=== PATIENT | male | born 1940 | race Caucasian/White ===

== ENCOUNTER 2022-06-20 09:27 | Inpatient (IN) | payer OTHER ==
[2022-06-20 11:06] LABS: BASO % 0.2 % (0-2.0); EOS % 0.3 % (0-4.5); HEMATOCRIT 16.6 % (35.4-49); LYMPH % 6.6 % (8-40); MCH 27.8 pg (25.7-33.7); MCHC 29.8 g/dl (32.0-35.9); MEAN CELL VOLUME 93.4 fl (80-96); MEAN PLT VOLUME 7.6 fl (7.5-11.1); NEUT % 88.9 % (42.8-82.8); PLATELET COUNT 372 10^3/uL (134-434); RBC 1.78 M/mm3 (4.00-5.60); RDW 19.9 % (11.9-15.9); WHITE BLOOD COUNT 28.3 K/mm3 (4.0-10.0)
[2022-06-20 11:22] LABS: INR 1.71 (0.83-1.09); PROTHROMBIN TIME (PATIENT) 19.8 SEC (9.7-13.0)
[2022-06-20] MEDS ORDERED: CEFTRIAXONE 1,000 MG in DEXTROSE 5%-WATER - 50 ML IVPB ONE (11:24)
[2022-06-20 11:25] LABS: ACTIVATED PTT 59.9 SECONDS (25.2-36.5)
[2022-06-20] MEDS ORDERED: PANTOPRAZOLE SODIUM 80 MG in SODIUM CHLORIDE 100 ML IVPB SCH ×2 (11:30→16:00)
[2022-06-20 11:35] LABS: CHLORIDE 90 mmol/L (98-107); SODIUM 132 mmol/L (136-145)
[2022-06-20 11:37] LABS: ALBUMIN 1.7 g/dl (3.4-5.0); CO2 19 mmol/L (21-32); GLUCOSE,RANDOM 122 mg/dL (74-106)
[2022-06-20 11:40] LABS: CREATININE 6.7 mg/dL (0.55-1.3); SGOT/AST 592 U/L (15-37)
[2022-06-20 11:41] LABS: SGPT/ALT 35 U/L (13-61)
[2022-06-20 11:42] LABS: BILIRUBIN,TOTAL 2.4 mg/dL (0.2-1); TOT PROT 5.3 g/dl (6.4-8.2)
[2022-06-20 11:43] LABS: ALK PHOS 615 U/L (45-117)
[2022-06-20 11:45] LABS: N-TERMINAL BNP 4789.6 pg/ml (5-450)
[2022-06-20 11:48] LABS: ANION GAP 22 MMOL/L (8-16)
[2022-06-20 12:29] LABS: ANISOCYTOSIS 0; MACROCYTOSIS 0
[2022-06-20] MEDS ORDERED: MEROPENEM 1 GM in DEXTROSE 5%-WATER 100 ML IVPB ONE (12:58)
[2022-06-20] MEDS ORDERED: MEROPENEM 1 GM VIAL (RESTRICTED TO ID) IVPB ONE (14:01)
[2022-06-20] MEDS ORDERED: VANCOMYCIN/WATER FOR INJ (PEG) 1,000 MG/200 ML BAG IVPB ONE (14:02)
[2022-06-20] MEDS: VANCOMYCIN 1 GM in D5W (PRE-DOCKED) 1,000 MG/250 ML IVPB ONE ×2 (15:03→15:14)
[2022-06-20] MEDS: PANTOPRAZOLE SODIUM 160 MG in SODIUM CHLORIDE 290 ML IVPB SCH (15:13)
[2022-06-20] MEDS: NOREPINEPHRINE D5W PREMIX 16,000 MCG/500 ML BAG IVPB SCH (15:37)
[2022-06-20 16:08] LABS: LACTIC ACID 4.4 mmol/L (0.4-2.0)
[2022-06-20] MEDS ORDERED: SODIUM CHLORIDE 500 ML IV STA (16:16)
[2022-06-20] MEDS ORDERED: CALCIUM GLUCONATE 10% - 1,000 MG/10 ML VIAL IVPB ONE (16:17)
[2022-06-20] MEDS ORDERED: INSULIN REGULAR HUMAN 100 UNITS/ML *VIAL IVPUSH ONE (16:19)
[2022-06-20] MEDS ORDERED: DEXTROSE 50%-WATER 25 GM/50 ML DISP.SYRIN IVPUSH ONE (16:19)
[2022-06-20] MEDS ORDERED: SODIUM ZIRCONIUM CYCLOSILICATE (LOKELMA) 5 GM PACKET PO ONE (16:20)
[2022-06-20] MEDS ORDERED: SODIUM CHLORIDE 1,000 ML IV STA (16:31)
[2022-06-20 16:40] LABS: EPI CELLS 17 /uL (0-25.1); HYALINE CASTS 11 /uL (0-3.1); URINE APPEARANCE CLEAR; URINE BACTERIA 5 /uL (0-1359); URINE BILIRUBIN 1+ (NEGATIVE); URINE COLOR DK YELLOW; URINE GLUCOSE (UA) NEGATIVE (NEGATIVE); URINE KETONE NEGATIVE (NEGATIVE); URINE LEUK ESTERASE TRACE (NEGATIVE); URINE NITRITE NEGATIVE (NEGATIVE); URINE PROTEIN TRACE (NEGATIVE); URINE WBC 24 /uL (0-25.8)
[2022-06-20] MEDS ORDERED: DEXTROSE 50%-WATER 25 GM/50 ML DISP.SYRIN ONE (17:39)
[2022-06-20] MEDS ORDERED: CALCIUM GLUCONATE 10% - 1,000 MG/10 ML VIAL ONE (17:39)
[2022-06-20 19:02] LABS: BASO % 0.2 % (0-2.0); EOS % 0.2 % (0-4.5); HEMATOCRIT 20.5 % (35.4-49); LYMPH % 5.3 % (8-40); MCH 27.9 pg (25.7-33.7); MCHC 31.1 g/dl (32.0-35.9); MEAN CELL VOLUME 89.6 fl (80-96); MEAN PLT VOLUME 7.5 fl (7.5-11.1); MONO % 5.7 % (3.8-10.2); NEUT % 88.6 % (42.8-82.8); PLATELET COUNT 320 10^3/uL (134-434); RBC 2.28 M/mm3 (4.00-5.60); RDW 17.3 % (11.9-15.9); WHITE BLOOD COUNT 25.9 K/mm3 (4.0-10.0)
[2022-06-20 19:26] LABS: HEMOGLOBIN 6.4 GM/dL (11.7-16.9)
[2022-06-20] MEDS ORDERED: LACTATED RINGERS SOLUTION 1000 ML INFUS.BAG IV ONE (19:31)
[2022-06-20 19:34] LABS: URINE RBC 91.4 /uL (0-23.9)
[2022-06-20 19:35] LABS: BILIRUBIN,DIRECT 3.1 mg/dL (0.0-0.2)
[2022-06-20] MEDS ORDERED: ACETAMINOPHEN 1000 MG/100 ML BAG IVPB PRN (19:36)
[2022-06-20 19:47] LABS: CHLORIDE 95 mmol/L (98-107); SODIUM 134 mmol/L (136-145)
[2022-06-20 19:49] LABS: ANION GAP 20 MMOL/L (8-16); CO2 18 mmol/L (21-32); GLUCOSE,RANDOM 165 mg/dL (74-106)
[2022-06-20 19:53] LABS: CREATININE 6.4 mg/dL (0.55-1.3)
[2022-06-20 19:54] LABS: ANISOCYTOSIS 2+; MACROCYTOSIS 2+
[2022-06-20 19:56] LABS: BLOOD UREA NITROGEN 171.1 mg/dL (7-18); CALCIUM 6.1 mg/dL (8.5-10.1)
[2022-06-20 19:58] LABS: PLATELET ESTIMATE ADEQUATE
[2022-06-20] MEDS: INSULIN SLIDING SCALE (NOVOLOG) 1 VIAL SQ SCH (22:15)
[2022-06-20] MEDS: MUPIROCIN 2% TOPICAL OINTMENT FOR DECOLONIZATION NS SCH (22:31)
[2022-06-20] MEDS: CHLORHEXIDINE GLUCONATE 4% CLEANSER FOR DECOLONIZATION TP SCH (22:31)
[2022-06-21] MEDS ORDERED: VASOPRESSIN 20 UNITS/ML VIAL IV ONE (00:53)
[2022-06-21] MEDS: VASOPRESSIN 40 UNITS in SODIUM CHLORIDE 40 UNITS/100 ML INFUS.BAG IVPB SCH ×3 (01:21→22:24)
[2022-06-21] MEDS ORDERED: TRIMETHOBENZAMIDE HCL 200MG/2ML INJ IM ONE (02:53)
[2022-06-21] MEDS ORDERED: MEROPENEM 500 MG VIAL (RESTRICTED TO ID) IVPB ONE ×2 (03:04→11:55)
[2022-06-21] MEDS ORDERED: DEXTROSE 5%-WATER 100 ML IVPB ONE ×2 (03:04→11:56)
[2022-06-21] MEDS: MEROPENEM 500 MG in DEXTROSE 5%-WATER 100 ML IVPB SCH ×2 (03:07→14:36)
[2022-06-21 04:28] LABS: HEMATOCRIT 30.7 % (35.4-49); HEMOGLOBIN 9.9 GM/dL (11.7-16.9); MCH 28.3 pg (25.7-33.7); MCHC 32.3 g/dl (32.0-35.9); MEAN CELL VOLUME 87.7 fl (80-96); MEAN PLT VOLUME 7.5 fl (7.5-11.1); PLATELET COUNT 353 10^3/uL (134-434); RDW 16.2 % (11.9-15.9)
[2022-06-21 04:30] LABS: WHITE BLOOD COUNT 32.9 K/mm3 (4.0-10.0)
[2022-06-21] MEDS: INSULIN SLIDING SCALE (NOVOLOG) 1 VIAL SQ SCH ×4 (06:52→21:14)
[2022-06-21 07:47] LABS: HEMATOCRIT 30.3 % (35.4-49); HEMOGLOBIN 9.7 GM/dL (11.7-16.9); MCH 28.5 pg (25.7-33.7); MCHC 32.1 g/dl (32.0-35.9); MEAN CELL VOLUME 88.8 fl (80-96); MEAN PLT VOLUME 7.7 fl (7.5-11.1); PLATELET COUNT 343 10^3/uL (134-434); RBC 3.41 M/mm3 (4.00-5.60); RDW 16.2 % (11.9-15.9)
[2022-06-21 07:48] LABS: CHLORIDE 94 mmol/L (98-107)
[2022-06-21 07:52] LABS: ALBUMIN 1.9 g/dl (3.4-5.0); CO2 17 mmol/L (21-32); GLUCOSE,RANDOM 229 mg/dL (74-106)
[2022-06-21 07:53] LABS: MAGNESIUM 3.7 mg/dL (1.8-2.4)
[2022-06-21 07:55] LABS: CREATININE 6.4 mg/dL (0.55-1.3); SGOT/AST 768 U/L (15-37); SGPT/ALT 46 U/L (13-61)
[2022-06-21 07:57] LABS: BILIRUBIN,TOTAL 6.2 mg/dL (0.2-1); TOT PROT 5.4 g/dl (6.4-8.2)
[2022-06-21 07:58] LABS: ALK PHOS 640 U/L (45-117)
[2022-06-21 08:32] LABS: ANION GAP 20 MMOL/L (8-16); BLOOD UREA NITROGEN 187.8 mg/dL (7-18); CALCIUM 6.4 mg/dL (8.5-10.1); PHOSPHOROUS 8.9 mg/dL (2.5-4.9); SODIUM 131 mmol/L (136-145)
[2022-06-21 09:11] LABS: ANISOCYTOSIS 0; MACROCYTOSIS 0; OVALOCYTE 1+
[2022-06-21 09:15] LABS: ANISOCYTOSIS 0; MACROCYTOSIS 0; TEAR DROP CELLS 1+
[2022-06-21] MEDS: MUPIROCIN 2% TOPICAL OINTMENT FOR DECOLONIZATION NS SCH ×2 (09:32→21:14)
[2022-06-21] MEDS: PANTOPRAZOLE SODIUM 160 MG in SODIUM CHLORIDE 290 ML IVPB SCH (09:33)
[2022-06-21] MEDS: DOPAMINE 400 MG/D5W - 400,000 MCG/250 ML INFUS.BAG IVPB SCH ×2 (10:35→22:23)
[2022-06-21 12:35] LABS: WHITE BLOOD COUNT 32.3 K/mm3 (4.0-10.0)
[2022-06-21 13:21] VITALS: BMI 35.8
[2022-06-21] MEDS ORDERED: HYDROCORTISONE SOD SUCCINATE 100 MG/2 ML VIAL IVPB SCH (14:00)
[2022-06-21] MEDS: FLUDROCORTISONE ACETATE 0.1 MG TABLET (FP) PO SCH (14:36)
[2022-06-21] MEDS: HYDROCORTISONE SOD SUCCINATE 100 MG/2 ML VIAL IVPB SCH ×2 (14:39→21:14)
[2022-06-21] MEDS: NOREPINEPHRINE D5W PREMIX 16,000 MCG/500 ML BAG IVPB SCH ×2 (14:40→22:25)
[2022-06-21 14:49] LABS: BILIRUBIN,DIRECT 5.1 mg/dL (0.0-0.2)
[2022-06-21] MEDS: CHLORHEXIDINE GLUCONATE 4% CLEANSER FOR DECOLONIZATION TP SCH (21:14)
[2022-06-22] MEDS: VASOPRESSIN 40 UNITS in SODIUM CHLORIDE 40 UNITS/100 ML INFUS.BAG IVPB SCH ×2 (01:23→09:34)
[2022-06-22] MEDS ORDERED: DEXTROSE 5%-WATER 100 ML IVPB ONE (03:58)
[2022-06-22] MEDS ORDERED: MEROPENEM 500 MG VIAL (RESTRICTED TO ID) IVPB ONE (03:58)
[2022-06-22] MEDS: HYDROCORTISONE SOD SUCCINATE 100 MG/2 ML VIAL IVPB SCH ×2 (03:59→09:28)
[2022-06-22] MEDS: MEROPENEM 500 MG in DEXTROSE 5%-WATER 100 ML IVPB SCH (04:00)
[2022-06-22] MEDS: PANTOPRAZOLE SODIUM 160 MG in SODIUM CHLORIDE 290 ML IVPB SCH ×2 (04:07→11:21)
[2022-06-22] MEDS: INSULIN SLIDING SCALE (NOVOLOG) 1 VIAL SQ SCH ×2 (06:56→11:14)
[2022-06-22 07:21] LABS: HEMATOCRIT 30.5 % (35.4-49); HEMOGLOBIN 9.6 GM/dL (11.7-16.9); MCH 28.5 pg (25.7-33.7); MCHC 31.5 g/dl (32.0-35.9); MEAN CELL VOLUME 90.6 fl (80-96); MEAN PLT VOLUME 7.8 fl (7.5-11.1); PLATELET COUNT 340 10^3/uL (134-434); RBC 3.36 M/mm3 (4.00-5.60); RDW 17.4 % (11.9-15.9)
[2022-06-22 07:37] LABS: CHLORIDE 92 mmol/L (98-107); SODIUM 127 mmol/L (136-145)
[2022-06-22 07:39] LABS: WHITE BLOOD COUNT 37.1 K/mm3 (4.0-10.0)
[2022-06-22 07:43] LABS: ALBUMIN 1.9 g/dl (3.4-5.0); CO2 16 mmol/L (21-32); GLUCOSE,RANDOM 293 mg/dL (74-106); MAGNESIUM 3.8 mg/dL (1.8-2.4)
[2022-06-22 07:46] LABS: CREATININE 7.2 mg/dL (0.55-1.3); SGOT/AST 388 U/L (15-37); SGPT/ALT 36 U/L (13-61)
[2022-06-22 07:47] LABS: TOT PROT 5.6 g/dl (6.4-8.2)
[2022-06-22 07:50] LABS: ALK PHOS 565 U/L (45-117); ANION GAP 18 MMOL/L (8-16); CALCIUM 6.1 mg/dL (8.5-10.1)
[2022-06-22 08:29] LABS: BLOOD UREA NITROGEN 197.5 mg/dL (7-18)
[2022-06-22 08:31] LABS: PHOSPHOROUS 9.9 mg/dL (2.5-4.9)
[2022-06-22] MEDS ORDERED: DEXTROSE 50%-WATER - 25 GM/50 ML VIAL IVPUSH ONE (08:45)
[2022-06-22] MEDS ORDERED: DEXTROSE 50%-WATER 25 GM/50 ML DISP.SYRIN IVPUSH ONE (08:50)
[2022-06-22] MEDS ORDERED: INSULIN REGULAR HUMAN 100 UNITS/ML *VIAL SQ ONE (09:00)
[2022-06-22] MEDS ORDERED: CALCIUM GLUCONATE 10% - 1,000 MG/10 ML VIAL IVPUSH ONE (09:00)
[2022-06-22 09:24] LABS: ANISOCYTOSIS 1+; MACROCYTOSIS 0
[2022-06-22] MEDS: FLUDROCORTISONE ACETATE 0.1 MG TABLET (FP) PO SCH (09:30)
[2022-06-22] MEDS: MUPIROCIN 2% TOPICAL OINTMENT FOR DECOLONIZATION NS SCH (09:32)
[2022-06-22] MEDS: DOPAMINE 400 MG/D5W - 400,000 MCG/250 ML INFUS.BAG IVPB SCH ×2 (09:33→11:23)
[2022-06-22] MEDS ORDERED: SODIUM ZIRCONIUM CYCLOSILICATE (LOKELMA) 5 GM PACKET PO SCH (10:00)
[2022-06-22] MEDS ORDERED: NOREPINEPHRINE BITARTRATE 4 MG/4 ML ML IV ONE (12:00)
[2022-06-22] MEDS: NOREPINEPHRINE D5W PREMIX 16,000 MCG/500 ML BAG IVPB SCH (12:09)
[2022-06-22] MEDS: MORPHINE SULFATE/0.9% NACL/PF 100 MG/100 ML BAG IVPB SCH (12:30)
[2022-06-22 16:28] VITALS: BP 74/44
[2022-06-23] MEDS: MORPHINE SULFATE/0.9% NACL/PF 100 MG/100 ML BAG IVPB SCH (00:05)
[2022-06-23] MEDS: PANTOPRAZOLE SODIUM 160 MG in SODIUM CHLORIDE 290 ML IVPB SCH (04:01)
[2022-06-23 06:42] VITALS: PULSE 61; RESP 18; TEMP 97.4
== END 2022-06-23 07:57 | disposition expired | DRG 871 ==
LOC: JER 09:27 → JERBED 15:25 → JICU 19:34
PROVIDERS: ADMIT Internal Medicine Pulmonary Disease; ATTEND Internal Medicine Pulmonary Disease
PROC: 30233N1 Transfusion of Nonautologous Red Blood Cells into Peripheral Vein, Percutaneous Approach (ICD-10-PCS; principal; 2022-06-20)
DX: A41.9 Sepsis, unspecified organism (principal); R65.21 Severe sepsis with septic shock; G92.8 Other toxic encephalopathy; J18.9 Pneumonia, unspecified organism; K29.71 Gastritis, unspecified, with bleeding; I13.0 Hypertensive heart and chronic kidney disease with heart failure and stage 1 through stage 4 chronic kidney disease, or unspecified chronic kidney disease; C25.9 Malignant neoplasm of pancreas, unspecified; E87.2 Acidosis; E87.1 Hypo-osmolality and hyponatremia; J98.11 Atelectasis; E11.22 Type 2 diabetes mellitus with diabetic chronic kidney disease; G20 Parkinson's disease; I50.9 Heart failure, unspecified; E03.9 Hypothyroidism, unspecified; F32.A Depression, unspecified; F03.90 Unspecified dementia, unspecified severity, without behavioral disturbance, psychotic disturbance, mood disturbance, and anxiety; N18.9 Chronic kidney disease, unspecified; E78.5 Hyperlipidemia, unspecified; I25.10 Atherosclerotic heart disease of native coronary artery without angina pectoris; E87.5 Hyperkalemia; D72.829 Elevated white blood cell count, unspecified; R94.5 Abnormal results of liver function studies; Z66 Do not resuscitate; D50.9 Iron deficiency anemia, unspecified; R74.01 Elevation of levels of liver transaminase levels; Z95.1 Presence of aortocoronary bypass graft
CPT/HCPCS: 0241U-QW; 36415; 36430; 71045-TC-FY; 74176-TC; 76775-TC; 80048; 80053; 81003; 82248; 82272; 82533; 82962; 83036; 83605; 83690; 83735; 83880; 84100; 84439; 84443; 85025; 85610; 85730; 86850; 86900; 86901; 86922; 87040; 87086; 93005; 93010; 99285-25; G0480; P9058